=== PATIENT | male | born 1995 | race African-American/Black ===

== ENCOUNTER → 2020-04-21 | Emergency (ER) | payer OTHER ==
[~2020-04-21] VITALS: Ht 190.5 cm; Wt 113.4 kg
[~2020-04-21] MED LIST: IBUPROFEN 800 MG TAB PO ONE
[2020-04-21 05:00] VITALS: BP 158/77
== END | disposition home or self-care (01) ==
LOC: EDBD 04:45 → ER 04:45
DX: S93.401A Sprain of unspecified ligament of right ankle, initial encounter (principal); W18.39XA Other fall on same level, initial encounter; Y93.89 Activity, other specified; Y92.89 Other specified places as the place of occurrence of the external cause; Y99.8 Other external cause status
CPT/HCPCS: 29515; 73590; 73610